=== PATIENT | female | born 1995 | race Caucasian/White ===

== ENCOUNTER 2017-08-15 08:54 | Emergency (ER) | payer MEDICAID ==
[~2017-08-15] VITALS: Ht 162.6 cm; Wt 67.5 kg
[2017-08-15 08:56] VITALS: BP 116/77
[2017-08-15 10:00] LABS: MICROSCOPIC AUTO
[2017-08-15 10:04] LABS: CULTURE INDICATED? YES
[2017-08-15 10:54] LABS: HCG UR SG 1.025 (1.003-1.030)
== END 2017-08-15 11:35 | disposition home or self-care (01) ==
LOC: ED 11:29
DX: N30.91 Cystitis, unspecified with hematuria (principal); Z88.1 Allergy status to other antibiotic agents
CPT/HCPCS: 81001; 81025; 87086; 99284